=== PATIENT | female | born 1945 | race Caucasian/White ===

== ENCOUNTER → 2016-12-28 | Outpatient (CLI) | payer MEDICARE, BC ==
--- NOTE | 2016-12-28 14:43 | REPMRS ---
Patient History The patient states she has not had a clinical breast exam in over a year. Patient is postmenopausal and has history of other cancer at age 71. Family history of unknown cancer in father at age 50 or over, unknown cancer in maternal aunt at age 50 or over, and prostate cancer in maternal uncle at age 50 or over. Digital Woman Screen Mammo: December 28, 2016 - Exam #: [id number] Bilateral CC and MLO view(s) were taken. Technologist: Jackelyn Garcia, Technologist Prior study comparison: April 29, 2015, digital woman screen mammo performed at [facility]. April 29, 2014, digital woman screen mammo performed at [facility]. FINDINGS: There are scattered fibroglandular densities. There has been no change in the appearance of the mammogram from the prior studies. There is a mild amount of residual fibroglandular tissue which is fairly symmetric. There is no interval development of dominant mass, architectural distortion, or clustered microcalcification suggestive of malignancy. ASSESSMENT: BI-RADS/ACR category 1 mammogram. Negative. Recommendation Routine screening mammogram in 1 year (for women over age 40). This mammogram was interpreted with the aid of an FDA-approved computer-aided dectection system. Electronically Signed By: Antonio Thomas MD 12/28/16 [id number]
--- NOTE | 2017-01-01 13:49 | DEXA ---
AP SPINE L1 - L4 0.890 -2.5 -0.5 LT FEMUR TOTAL 0.813 -1.5 0.3 RT FEMUR TOTAL 0.794 -1.7 0.1 TOTAL BODY TOTAL OTHER L2-L4 0.853 -2.9 -0.9 DUAL FEMUR FRAX* ASSESSMENT Risk factors: Not performed. 10 year probability of fracture Major osteoporotic fracture % Hip fracture % COMMENTS: There is low bone density of the spine and hips. The decreased density of the spine does represent a significant change. The decreased density of the left hip does represent a significant change. The decreased density of the right hip does not represent a significant change. The density of the L2-L4 spine has decreased 9.7% since the initial exam on . The spine density has decreased 3.2% since the most recent exam on 12/29/2013. The density of the left hip has decreased 2.5% since the initial exam on 2009. The density of the left hip has decreased 3.8% since the most recent exam on 08/2013. The density of the right hip has decreased 7.0% since the initial exam on 2011. The density of the right hip has decreased 1.2% since the most recent exam on . FOLLOW-UP: Recommendation for the next bone density exam: 2 years. PRESTON
== END ==
LOC: M WHC 13:56
PROVIDERS: ATTEND Family Medicine
DX: Z12.31 Encounter for screening mammogram for malignant neoplasm of breast (principal); Z78.0 Asymptomatic menopausal state; Z85.9 Personal history of malignant neoplasm, unspecified
CPT/HCPCS: 77080; G0202

== ENCOUNTER → 2017-01-19 | Outpatient (REF) | payer MEDICARE, BC | LOC: M SFHCPLAZ 12:27 | PROVIDERS: ATTEND Family Medicine | DX: T86.822 Skin graft (allograft) (autograft) infection (principal) | CPT/HCPCS: 87070; 87205; G0463 ==

== ENCOUNTER → 2017-01-22 | Outpatient (CLI) | payer MEDICARE, BC ==
--- NOTE | 2017-01-22 17:14 | REP ---
Clinical: Left lower extremity pain and swelling . Technique: Thomas scale and color Doppler evaluation using linear high frequency transducer. Findings: Ultrasound examination of the left lower extremity deep venous structures from the common femoral vein to the popliteal vein demonstrates normal compressibility flow and wave patterns in response to respiration and augmentation. There is no evidence for deep venous thrombosis. Small fluid collection in the left groin at the site of prior lymph node dissection measures 3.4 x 2.6 x 2.2 cm. Impression: No evidence for deep venous thrombosis. Small fluid collection in the left groin likely related to prior lymph node dissection. Signed by Albert Iyer MD 01/22/2017 05:06 P
== END ==
LOC: M RAD 16:02
PROVIDERS: ATTEND Family Medicine
DX: M79.89 Other specified soft tissue disorders (principal)
CPT/HCPCS: 93971; G0463

== ENCOUNTER → 2017-02-19 | Outpatient (REF) | payer MEDICARE, BC ==
[2017-02-19 13:24] LABS: ALBUMIN 3.8 GM/DL (3.2-5.2); ALBUMIN/GLOBULIN RATIO 1.19 (1.00-1.93); ALKALINE PHOSPHATASE 87 U/L (45-117); ALT/SGPT 34 U/L (12-78); ANION GAP 8 MEQ/L (8-16); AST/SGOT 19 U/L (15-37); BILIRUBIN,TOTAL 0.4 MG/DL (0.2-1.0); BLOOD UREA NITROGEN 19 MG/DL (7-18); CALCIUM LEVEL 9.4 MG/DL (8.8-10.2); CARBON DIOXIDE LEVEL 27 MEQ/L (21-32); CHLORIDE LEVEL 103 MEQ/L (98-107); CHOLESTEROL LEVEL 247 MG/DL (<200); FREE T4 0.86 NG/DL (0.76-1.46); GLOMERULAR FILTRATION RATE > 60.0 (>39); GLUCOSE, FASTING 100 MG/DL (83-110); POTASSIUM SERUM 4.3 MEQ/L (3.5-5.1); SODIUM LEVEL 138 MEQ/L (136-145); TRIGLYCERIDES LEVEL 100 MG/DL (<150)
== END ==
LOC: M SFHCADAM 08:16
PROVIDERS: ATTEND Family Medicine
DX: E78.4 Other hyperlipidemia (principal); E04.1 Nontoxic single thyroid nodule; E55.9 Vitamin D deficiency, unspecified

== ENCOUNTER → 2017-03-29 | Outpatient (REF) | payer MEDICARE, BC | LOC: M LAB REF 14:46 | PROVIDERS: ATTEND Surgery | DX: C44.712 Basal cell carcinoma of skin of right lower limb, including hip (principal) ==

== ENCOUNTER → 2017-04-10 | Outpatient (CLI) | payer MEDICARE, BC ==
--- NOTE | 2017-04-10 15:44 | REP ---
SUPINE ABDOMEN: 04/10/2017. CLINICAL HISTORY: Abdominal pain. The patient states passed a kidney stone. FINDINGS: There are no prior pertinent studies. Two views were provided. There is a dextrorotatory curvature of the lumbar spine centered at L1. Facet arthropathy is noted posteriorly. SI joints with minor degenerative changes on the left inferiorly. Hip joint space is symmetric. Pelvic ring intact. The two views to encompass the entirety of the abdomen and pelvis show no definite stone over the renal fossae on either side. For the left sacral ala is a oval smooth calcification about 5 mm. This could be a pelvic phlebolith or even a ureteral stone although most of those are not quite as smooth. There is another tiny smooth calcification deep pelvis paramedian on the left just above the symphysis pubis suggesting a phlebolith. No definite renal or ureteral stone on the left and no definite bladder stone. Degenerative changes in the hips, left greater than right. IMPRESSION: 1. Dextrorotatory curve lumbar spine centered at L1 with nonspecific gas pattern. No obstruction, mass, free air. 2. A 5 mm calcification overlying the left sacral ala. This could be a phlebolith or possibly a ureteral stone although they generally are not as smoothly marginated. I do not see candidate calcifications for stone overlying the renal fossae. Signed by Berry Randall MD 04/10/2017 04:25 P
== END ==
LOC: M ADAMS 13:47
PROVIDERS: ATTEND Family Medicine
DX: R93.5 Abnormal findings on diagnostic imaging of other abdominal regions, including retroperitoneum (principal)
CPT/HCPCS: 74000; 81000; 87088; 87186; G0463

== ENCOUNTER → 2017-04-10 | Outpatient (REF) | payer MEDICARE, BC ==
[2017-04-10 20:35] LABS: MICROSCOPIC INDICATED? MAN YES (NO)
[2017-04-10 20:46] LABS: BACTERIA, URINE SMALL AMOUNT; HYALINE CAST, URINE NONE SEEN /lpf (0-1); MICROSCOPIC EXAM PERFORMED; SQUAMOUS EPITHELIAL CELL URINE SMALL AMOUNT /hpf (SMALL AMT)
== END ==
LOC: M SFHCADAM 13:37
PROVIDERS: ATTEND Family Medicine
DX: N20.0 Calculus of kidney (principal)

== ENCOUNTER → 2017-12-31 | Outpatient (CLI) | payer MEDICARE, BC | LOC: M WHC 10:19 | DX: Z12.31 Encounter for screening mammogram for malignant neoplasm of breast (principal) | CPT/HCPCS: 77067 ==

== ENCOUNTER → 2019-01-01 | Outpatient (CLI) | payer MEDICARE, BC ==
--- NOTE | 2019-01-01 10:39 | REPMRS ---
Patient History The patient states she has not had a clinical breast exam in over a year. Family history of unknown cancer at age 50 or over in maternal aunt, prostate cancer at age 50 or over in maternal uncle. 3D TOMOSYNTHESIS WAS PERFORMED. Digital Woman Screen Mammo: January 01, 2019 - Exam #: [id number] Bilateral CC and MLO view(s) were taken. Technologist: Jackelyn Garcia, Technologist Prior study comparison: December 31, 2017, digital woman screen mammo performed at [facility]. December 28, 2016, digital woman screen mammo performed at [facility]. FINDINGS: There are scattered fibroglandular densities. There has been no change in the appearance of the mammogram from the prior studies. There is a mild amount of residual fibroglandular tissue which is fairly symmetric. There is no interval development of dominant mass, architectural distortion, or clustered microcalcification suggestive of malignancy. Assessment: BI-RADS/ACR category 1 mammogram. Negative Mammogram. Recommendation Routine screening mammogram in 1 year (for women over age 40). This mammogram was interpreted with the aid of an FDA-approved computer-aided dectection system. Electronically Signed By: Antonio Thomas MD 01/01/19 [id number]
--- NOTE | 2019-01-03 10:45 | DEXA ---
AP SPINE L1 - L4 0.966 -1.8 -0.5 LT FEMUR TOTAL 0.843 -1.3 0.5 LT NECK 0.756 -2.0 -0.1 RT FEMUR TOTAL 0.836 -1.4 0.4 RT NECK 0.785 -1.8 0.1 TOTAL BODY TOTAL OTHER COMMENTS: There is low bone density of the spine and hips. The increased density of the spine does represent a significant change. The increased density of the left hip does represent a significant change. The increased density of the right hip does represent a significant change. The density of the spine has increased 8.5% since the initial exam on 12/29/2013. The spine density has increased 8.5% since the most recent exam on 12/28/2016. The density of the left hip has increased 1.7% since the initial exam on 12/29/2013. The density of the left hip has increased 4.3% since the most recent exam on 12/28/2016. The density of the right hip has decreased 2.1% since the initial exam on 12/29/2013. The density of the right hip has increased 5.3% since the most recent exam on 12/28/2016. FOLLOW-UP: Recommendation for the next bone density exam: 2 years. PRESTON
== END ==
LOC: M WHC 08:31
PROVIDERS: ATTEND Family Medicine
DX: Z12.31 Encounter for screening mammogram for malignant neoplasm of breast (principal); M81.8 Other osteoporosis without current pathological fracture
CPT/HCPCS: 77063; 77067; 77080; G0463

== ENCOUNTER → 2020-01-22 | Outpatient (REF) | payer MEDICARE, BC ==
[2020-01-22 18:17] LABS: ALBUMIN 3.6 GM/DL (3.2-5.2); ALT/SGPT 31 U/L (12-78); BILIRUBIN,TOTAL 0.3 MG/DL (0.2-1.0); BLOOD UREA NITROGEN 24 MG/DL (7-18); CALCIUM LEVEL 9.1 MG/DL (8.8-10.2); CARBON DIOXIDE LEVEL 30 MEQ/L (21-32); CHLORIDE LEVEL 106 MEQ/L (98-107); CHOLESTEROL LEVEL 234 MG/DL (<200); CHOLESTEROL RISK RATIO 4.415 (<5); CREATININE FOR GFR 0.83 MG/DL (0.55-1.30); FREE T4 0.88 NG/DL (0.76-1.46); GLOMERULAR FILTRATION RATE > 60.0 (>39); GLUCOSE, FASTING 82 MG/DL (70-100); HDL CHOLESTEROL 53 MG/DL (>40); LDL CHOLESTEROL 135 MG/DL (<100); NON-HDL-C 181 MG/DL; POTASSIUM SERUM 4.1 MEQ/L (3.5-5.1); SODIUM LEVEL 139 MEQ/L (136-145); TOTAL PROTEIN 6.9 GM/DL (6.4-8.2); TRIGLYCERIDES LEVEL 230 MG/DL (<150)
[2020-01-23 10:10] LABS: TOTAL 25(OH) VITAMIN D 32.6 NG/ML (30.0-100.0)
== END ==
LOC: M SFHCADAM 14:30
PROVIDERS: ATTEND Family Medicine
DX: E04.1 Nontoxic single thyroid nodule (principal); E78.49 Other hyperlipidemia; E55.9 Vitamin D deficiency, unspecified; M81.8 Other osteoporosis without current pathological fracture
CPT/HCPCS: 80053; 80061; 82306; 84439; 84443; G0463

== ENCOUNTER → 2020-03-18 | Outpatient (CLI) | payer MEDICARE, BC ==
--- NOTE | 2020-03-20 12:40 | REPMRS ---
Patient History The patient states she has not had a clinical breast exam in over a year. Patient is postmenopausal and has history of other cancer at age 71. Family history of unknown cancer at age 50 or over in maternal aunt, prostate cancer at age 50 or over in maternal uncle. No Hormone Replacement Therapy Digital Woman Screen Mammo: March 18, 2020 - Exam #: [id number] Bilateral CC and MLO view(s) were taken. Technologist: Jackelyn Garcia, Technologist Prior study comparison: January 01, 2019, bilateral digital woman screen mammo performed at [facility]. December 31, 2017, digital woman screen mammo performed at [facility]. December 28, 2016, digital woman screen mammo performed at [facility]. FINDINGS: There are scattered fibroglandular densities. The Volpara volumetric breast density category is:B. There has been no change in the appearance of the mammogram from the prior studies. There is a mild amount of scattered fibroglandular density which is fairly symmetric. There is no interval development of dominant mass, architectural distortion, or grouped microcalcification suggestive of malignancy. 3-D tomosynthesis shows no additional findings. Assessment: BI-RADS/ACR category 1 mammogram. Negative Mammogram. Recommendation Routine screening mammogram of both breasts in 1 year (for women over age 40). This patient's Lifetime Breast Cancer Risk is estimated at 2.7 %. This mammogram was interpreted with the aid of an FDA-approved computer-aided dectection system. Electronically Signed By: Percy Self MD 03/20/20 [id number]
== END ==
LOC: M WHC 09:36
PROVIDERS: ATTEND Family Medicine
DX: Z12.31 Encounter for screening mammogram for malignant neoplasm of breast (principal)

== ENCOUNTER → 2021-03-29 | Outpatient (CLI) | payer MEDICARE, BC ==
--- NOTE | 2021-03-29 09:32 | DEXAMM ---
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 COMPARISON: 01/01/2019 as well as other prior exams. TECHNIQUE: Bone density was measured using dual-energy x-ray absorptiometry (DEXA). FINDINGS: AP SPINE L1-L4 BMD 1.029 g/cm2 Young Adult T-Score -1.3 Age Matched Z-Score 0.5. LT FEMUR, TOTAL BMD 0.849 g/cm2 Young Adult T-Score -1.3 Age Matched Z-Score 0.6. LT NECK BMD 0.781 g/cm2 Young Adult T-Score -1.8 Age Matched Z-Score 0.2. RT FEMUR, TOTAL BMD 0.853 g/cm2 Young Adult T-Score -1.2 Age Matched Z-Score 0.6. RT NECK BMD 0.73 g/cm2 Young Adult T-Score -1.8 Age Matched Z-Score 0.2. IMPRESSION: There is low bone density of the spine. There is low bone density of the left hip. There is low bone density of the right hip. The density of the spine has increased 15.6% since the initial exam on 12/29/2013. The density of the spine increased 6.5% since most recent exam on 01/01/2019. The density of the left hip has increased 1.8% since initial exam on 04/15/2010. The density of the left hip has increased 0.1% since most recent exam on 01/01/2019. The density of the right hip has decreased 0.1% since the initial exam on 04/15/2010. The density of the right hip has increased 2.0% since the most recent exam on 01/01/2019. FOLLOW-UP: Recommendation for the next bone density exam: 2 years. <Electronically signed by Antonio Thomas > 03/29/21 0929
--- NOTE | 2021-03-29 10:08 | REPMRS ---
Patient History The patient states she has not had a clinical breast exam in over a year. Family history of unknown cancer at age 50 or over in maternal aunt, prostate cancer at age 50 or over in maternal uncle. No Hormone Replacement Therapy Tomosynthesis is performed. Volpara breast density is b. AnanyaGeorgina lifetime risk of breast cancer 2.4%. No breast complaints today Patient signed the MRS sheet 1st covid vaccine 08/17/20-Pfizer 2nd covid vaccine 09/04/20-patient does not remember which arm either were in [facility] on PACS Patient Identification Verified Digital Woman Screen Mammo: March 29, 2021 - Exam #: [id number] Bilateral CC and MLO view(s) were taken. Technologist: Roberto Buckleyologist Prior study comparison: March 18, 2020, bilateral digital woman screen mammo performed at [facility]. January 01, 2019, bilateral digital woman screen mammo performed at [facility]. FINDINGS: There are scattered fibroglandular densities. There has been no change in the appearance of the mammogram from the prior studies. There is a mild amount of residual fibroglandular tissue which is fairly symmetric. There is no interval development of dominant mass, architectural distortion, or clustered microcalcification suggestive of malignancy. Assessment: BI-RADS/ACR category 1 mammogram. Negative Mammogram. Recommendation Routine screening mammogram in 1 year (for women over age 40). This mammogram was interpreted with the aid of an FDA-approved computer-aided dectection system. Electronically Signed By: Antonio Thomas MD 03/29/21 1007
== END ==
LOC: M WHC 07:54
PROVIDERS: ATTEND Family Medicine
DX: Z12.31 Encounter for screening mammogram for malignant neoplasm of breast (principal); M81.8 Other osteoporosis without current pathological fracture
CPT/HCPCS: 77063; 77067; 77080; G0463

== ENCOUNTER → 2021-04-05 | Outpatient (REF) | payer MEDICARE, BC ==
[2021-04-05 14:07] LABS: ALBUMIN 3.6 GM/DL (3.2-5.2); ALT/SGPT 36 U/L (12-78); BILIRUBIN,TOTAL 0.5 MG/DL (0.2-1.0); BLOOD UREA NITROGEN 18 MG/DL (7-18); CALCIUM LEVEL 9.1 MG/DL (8.8-10.2); CARBON DIOXIDE LEVEL 29 MEQ/L (21-32); CHLORIDE LEVEL 106 MEQ/L (98-107); CHOLESTEROL LEVEL 261 MG/DL (<200); CHOLESTEROL RISK RATIO 4.015 (<5); CREATININE FOR GFR 0.69 MG/DL (0.55-1.30); FREE T4 0.79 NG/DL (0.76-1.46); GLOMERULAR FILTRATION RATE > 60.0 (>39); GLUCOSE, FASTING 97 MG/DL (70-100); HDL CHOLESTEROL 65 MG/DL (>40); LDL CHOLESTEROL 171 MG/DL (<100); NON-HDL-C 196 MG/DL; POTASSIUM SERUM 4.1 MEQ/L (3.5-5.1); SODIUM LEVEL 140 MEQ/L (136-145); TOTAL 25(OH) VITAMIN D 38.2 NG/ML (30.0-100.0); TOTAL PROTEIN 6.8 GM/DL (6.4-8.2); TRIGLYCERIDES LEVEL 123 MG/DL (<150)
== END ==
LOC: M SFHCADAM 08:03
PROVIDERS: ATTEND Family Medicine
DX: E04.1 Nontoxic single thyroid nodule (principal); E78.49 Other hyperlipidemia; E55.9 Vitamin D deficiency, unspecified; M81.8 Other osteoporosis without current pathological fracture

== ENCOUNTER → 2022-03-30 | Outpatient (CLI) | payer MEDICARE, BC | LOC: M WHC 06:54 | PROVIDERS: ATTEND Family Medicine | DX: Z12.31 Encounter for screening mammogram for malignant neoplasm of breast (principal) ==

== ENCOUNTER → 2022-04-26 | Outpatient (REF) | payer MEDICARE, BC ==
[2022-04-26 16:41] LABS: HEMATOCRIT 42.8 % (36.0-47.0); HEMOGLOBIN 13.4 g/dl (12.0-15.5); MEAN CORPUSCULAR HEMOGLOBIN 30.2 pg (27.0-33.0); MEAN CORPUSCULAR HGB CONC 31.3 g/dl (32.0-36.5); MEAN CORPUSCULAR VOLUME 96.6 fl (80.0-96.0); PLATELET COUNT, AUTOMATED 355 10^3/uL (150-450); RED BLOOD COUNT 4.43 10^6/uL (4.00-5.40); WHITE BLOOD COUNT 5.6 10^3/uL (4.0-10.0)
[2022-04-26 16:48] LABS: HEMOGLOBIN A1c 5.5 %
[2022-04-26 17:21] LABS: ALKALINE PHOSPHATASE 64 U/L (45-117); ALT/SGPT 39 U/L (12-78); AST/SGOT 20 U/L (7-37); BILIRUBIN,TOTAL 0.3 MG/DL (0.2-1.0); BLOOD UREA NITROGEN 20 MG/DL (7-18); CALCIUM LEVEL 9.1 MG/DL (8.8-10.2); CARBON DIOXIDE LEVEL 29 MEQ/L (21-32); CHLORIDE LEVEL 106 MEQ/L (98-107); CHOLESTEROL LEVEL 177 MG/DL (<200); CHOLESTEROL RISK RATIO 2.458 (<5); CREATININE FOR GFR 0.72 MG/DL (0.55-1.30); FREE T4 0.84 NG/DL (0.76-1.46); GLOMERULAR FILTRATION RATE > 60.0 (>39); GLUCOSE, FASTING 90 MG/DL (70-100); HDL CHOLESTEROL 72 MG/DL (>40); LDL CHOLESTEROL 88 MG/DL (<100); NON-HDL-C 105 MG/DL; POTASSIUM SERUM 4.1 MEQ/L (3.5-5.1); SODIUM LEVEL 142 MEQ/L (136-145); TOTAL PROTEIN 7.2 GM/DL (6.4-8.2); TRIGLYCERIDES LEVEL 87 MG/DL (<150)
[2022-04-26 17:43] LABS: TOTAL 25(OH) VITAMIN D 46.7 NG/ML (30.0-100.0)
== END ==
LOC: M SFHCADAM 11:38
PROVIDERS: ATTEND Family Medicine
DX: R19.5 Other fecal abnormalities (principal); F41.1 Generalized anxiety disorder; E55.9 Vitamin D deficiency, unspecified; M81.8 Other osteoporosis without current pathological fracture; E78.49 Other hyperlipidemia; Z13.1 Encounter for screening for diabetes mellitus

== ENCOUNTER 2023-01-27 20:30 | Emergency (ER) | payer MEDICARE, BC ==
[~2023-01-27] VITALS: Ht 147.3 cm; Wt 52.1 kg
[2023-01-27] MEDS ORDERED: ACETAMINOPHEN 325 MG TAB PO ONE (20:55)
[2023-01-27 22:24] VITALS: BP 112/60; TEMP 98.8; O2SAT 98
== END 2023-01-27 23:29 | disposition home or self-care (01) ==
LOC: M ED 20:30
DX: J06.9 Acute upper respiratory infection, unspecified (principal); H61.23 Impacted cerumen, bilateral; E03.9 Hypothyroidism, unspecified; Z85.820 Personal history of malignant melanoma of skin

== ENCOUNTER → 2023-06-12 | Outpatient (CLI) | payer MEDICARE, BC | LOC: M WHC 08:43 | PROVIDERS: ATTEND Family Medicine | DX: Z12.31 Encounter for screening mammogram for malignant neoplasm of breast (principal); M81.8 Other osteoporosis without current pathological fracture; M85.88 Other specified disorders of bone density and structure, other site; M85.851 Other specified disorders of bone density and structure, right thigh; M85.852 Other specified disorders of bone density and structure, left thigh ==

== ENCOUNTER → 2023-08-03 | Outpatient (REF) | payer MEDICARE, BC ==
[2023-08-03 16:59] LABS: HEMATOCRIT 42.6 % (36.0-47.0); HEMOGLOBIN 13.6 g/dl (12.0-15.5); MEAN CORPUSCULAR HEMOGLOBIN 30.7 pg (27.0-33.0); MEAN CORPUSCULAR HGB CONC 31.9 g/dl (32.0-36.5); MEAN CORPUSCULAR VOLUME 96.2 fl (80.0-96.0); PLATELET COUNT, AUTOMATED 351 10^3/uL (150-450); RED BLOOD COUNT 4.43 10^6/uL (4.00-5.40); WHITE BLOOD COUNT 6.3 10^3/uL (4.0-10.0)
[2023-08-03 17:19] LABS: ALBUMIN 3.9 G/DL (3.2-5.2); ALKALINE PHOSPHATASE 73 U/L (46-116); ALT/SGPT 33 U/L (7.0-40); AST/SGOT 18 U/L (<34); BILIRUBIN,TOTAL 0.5 MG/DL (0.3-1.2); BLOOD UREA NITROGEN 20 MG/DL (9-23); CALCIUM LEVEL 9.8 MG/DL (8.3-10.6); CARBON DIOXIDE LEVEL 30 MMOL/L (20-31); CHLORIDE LEVEL 106 MMOL/L (98-107); CHOLESTEROL LEVEL 193 MG/DL (<200); CHOLESTEROL RISK RATIO 2.97 (<5); GLOMERULAR FILTRATION RATE > 60.0 (>39); GLUCOSE, FASTING 85 MG/DL (74-106); HDL CHOLESTEROL 64.8 MG/DL (>40); LDL CHOLESTEROL 103.8 MG/DL (<100); NON-HDL-C 128.2 MG/DL; POTASSIUM SERUM 4.3 MMOL/L (3.5-5.1); SODIUM LEVEL 140 MMOL/L (136-145); TOTAL PROTEIN 6.7 G/DL (5.7-8.2); TRIGLYCERIDES LEVEL 122 MG/DL (<150)
[2023-08-03 17:21] LABS: FREE T4 0.88 NG/DL (0.89-1.76); THYROID STIMULATING HORMONE 3.109 uIU/ML (0.55-4.78)
[2023-08-03 17:22] LABS: TOTAL 25(OH) VITAMIN D 50.5 NG/ML (20.0-100.0)
== END ==
LOC: M SFHCADAM 11:37
PROVIDERS: ATTEND Family Medicine
DX: E78.5 Hyperlipidemia, unspecified (principal); E04.1 Nontoxic single thyroid nodule; M81.8 Other osteoporosis without current pathological fracture; E55.9 Vitamin D deficiency, unspecified

== ENCOUNTER → 2024-09-08 | Outpatient (CLI) | payer MEDICARE, BC | LOC: M WHC 08:55 | PROVIDERS: ATTEND Family Medicine | DX: Z12.31 Encounter for screening mammogram for malignant neoplasm of breast (principal) ==

== ENCOUNTER → 2024-09-23 | Outpatient (REF) | payer MEDICARE, BC ==
[2024-09-23 14:47] LABS: HEMATOCRIT 43.9 % (36.0-47.0); MEAN CORPUSCULAR HEMOGLOBIN 30.1 pg (27.0-33.0); MEAN CORPUSCULAR HGB CONC 31.9 g/dl (32.0-36.5); MEAN CORPUSCULAR VOLUME 94.4 fl (80.0-96.0); PLATELET COUNT, AUTOMATED 379 10^3/uL (150-450); RED BLOOD COUNT 4.65 10^6/uL (4.00-5.40); WHITE BLOOD COUNT 5.6 10^3/uL (4.0-10.0)
[2024-09-23 14:49] LABS: ALBUMIN 3.7 G/DL (3.2-5.2); ALKALINE PHOSPHATASE 56 U/L (35-104); ALT/SGPT 28 U/L (7.0-40); AST/SGOT 18 U/L (<34); BILIRUBIN,TOTAL 0.6 MG/DL (0.3-1.2); BLOOD UREA NITROGEN 21 MG/DL (9-23); CALCIUM LEVEL 9.7 MG/DL (8.3-10.6); CARBON DIOXIDE LEVEL 31 MMOL/L (20-31); CHLORIDE LEVEL 105 MMOL/L (98-107); CHOLESTEROL LEVEL 168 MG/DL (<200); CHOLESTEROL RISK RATIO 2.82 (<5); GLOMERULAR FILTRATION RATE > 60.0 (>32); GLUCOSE, FASTING 95 MG/DL (74-106); HDL CHOLESTEROL 59.5 MG/DL (>40); LDL CHOLESTEROL 91.7 MG/DL (<100); NON-HDL-C 108.5 MG/DL; POTASSIUM SERUM 4.2 MMOL/L (3.5-5.1); SODIUM LEVEL 141 MMOL/L (136-145); TOTAL PROTEIN 6.8 G/DL (5.7-8.2); TRIGLYCERIDES LEVEL 84 MG/DL (<150)
[2024-09-23 14:50] LABS: THYROID STIMULATING HORMONE 2.762 uIU/ML (0.55-4.78)
[2024-09-23 14:51] LABS: FREE T4 1.12 NG/DL (0.89-1.76)
== END ==
LOC: M SFHCADAM 08:40
PROVIDERS: ATTEND Family Medicine
DX: E78.5 Hyperlipidemia, unspecified (principal); E04.1 Nontoxic single thyroid nodule; N20.0 Calculus of kidney; M81.8 Other osteoporosis without current pathological fracture

== ENCOUNTER → 2024-12-10 | Outpatient (CLI) | payer MEDICARE, BC ==
[~2024-12-10] MED LIST: ALEN70TA82; ATOR1TAB19; CALC-211 PO; CALCCHW19 PO; NOXI1TAB PO
== END ==
LOC: M ONCR 08:51
PROVIDERS: ATTEND General Practice
DX: C44.311 Basal cell carcinoma of skin of nose (principal); Z80.7 Family history of other malignant neoplasms of lymphoid, hematopoietic and related tissues; Z87.891 Personal history of nicotine dependence

== ENCOUNTER 2025-01-23 14:31 | Outpatient (RCR) | payer MEDICARE, BC ==
[2025-01-28] MEDS ORDERED: MOME0.1C3 TOP (15:19)
== END 2025-01-26 ==
LOC: M ONCR 14:31
PROVIDERS: ATTEND General Practice
DX: Z51.0 Encounter for antineoplastic radiation therapy (principal); C44.311 Basal cell carcinoma of skin of nose

== ENCOUNTER 2025-02-18 12:37 | Outpatient (RCR) | payer MEDICARE, BC ==
[~2025-02-18 12:37] MED LIST changes: +MOME0.1C3 TOP
== END 2025-02-26 ==
LOC: M ONCR 12:37
PROVIDERS: ATTEND General Practice
DX: Z51.0 Encounter for antineoplastic radiation therapy (principal); C44.311 Basal cell carcinoma of skin of nose

== ENCOUNTER → 2025-03-25 | Outpatient (CLI) | payer MEDICARE, BC | LOC: M ONCR 13:47 | PROVIDERS: ATTEND General Practice | DX: R09.89 Other specified symptoms and signs involving the circulatory and respiratory systems (principal); Z92.3 Personal history of irradiation ==

== ENCOUNTER 2025-04-12 07:56 | Emergency (ER) | payer MEDICARE, BC ==
[~2025-04-12] VITALS: Ht 147.3 cm; Wt 53.8 kg
[2025-04-12] MEDS ORDERED: CEPH500C PO (09:38)
[2025-04-12 09:47] VITALS: BP 131/68; TEMP 97.1; O2SAT 98
== END 2025-04-12 09:50 | disposition home or self-care (01) ==
LOC: M ED 07:56
DX: L03.012 Cellulitis of left finger (principal); E04.1 Nontoxic single thyroid nodule; Z79.2 Long term (current) use of antibiotics; Z79.899 Other long term (current) drug therapy